=== PATIENT | male | born 1940 | race Hispanic/Latino ===

== ENCOUNTER → 2020-08-24 | Outpatient (CLI) | payer OTHER | END | disposition home or self-care (01) | LOC: RAH 09:42 | PROVIDERS: ATTEND Internal Medicine Nephrology | DX: E11.22 Type 2 diabetes mellitus with diabetic chronic kidney disease (principal); N18.6 End stage renal disease; R13.19 Other dysphagia; J69.0 Pneumonitis due to inhalation of food and vomit | CPT/HCPCS: 74230; 92611 ==